=== PATIENT | male | born 1935 | race Caucasian/White ===

== ENCOUNTER 2017-05-12 09:48 | Emergency (ER) | payer OTHER, MEDICARE ==
[~2017-05-12] VITALS: Ht 182.9 cm; Wt 78.0 kg
[~2017-05-12 09:48] MED LIST: CIPR500T4 PO; FLAG500T PO; LACT PO; TRAM50 PO
[2017-05-12 09:50] VITALS: BP 141/85; PULSE 96; RESP 16; TEMP 97.8; O2SAT 95
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
[2017-05-12] MEDS ORDERED: PRED10PA2 PO (11:36)
== END 2017-05-12 12:09 | disposition home or self-care (01) ==
LOC: NEPD 09:48
DX: M54.17 Radiculopathy, lumbosacral region (principal); M54.6 Pain in thoracic spine; M25.512 Pain in left shoulder; M25.552 Pain in left hip; M54.2 Cervicalgia; Z87.448 Personal history of other diseases of urinary system; V89.2XXA Person injured in unspecified motor-vehicle accident, traffic, initial encounter
CPT/HCPCS: 72072; 72100; 72125; 99284; L0150